=== PATIENT | female | born 1965 | race African-American/Black ===

== ENCOUNTER 2016-10-03 15:25 | Emergency (ER) | payer MEDICAID ==
[~2016-10-03] VITALS: Ht 167.6 cm; Wt 90.7 kg
[~2016-10-03 15:25] MED LIST: CYCL5TAB89 PO; TRAM50TA2 PO
[2016-10-03 16:24] LABS: Basophils # (auto) 0.1 uL; Basophils % (auto) 0.7 % (0.0-2.0); Eosinophils # (auto) 0.1 uL; Eosinophils % (auto) 0.7 % (0.0-7.0); Hematocrit 45.4 % (36.0-46.0); Hemoglobin 14.9 g/dL (12.2-16.2); Lymphocytes # (auto) 3.2 uL; Mean Corpuscular Hemoglobin 29.6 pg (28.0-32.0); Mean Corpuscular Hgb Conc. 32.9 g/dL (32.0-36.0); Mean Corpuscular Volume 89.9 fL (80.0-100.0); Mean Platelet Volume 9.3 fL (7.4-10.4); Monocytes # (auto) 0.2 uL; Neutrophils # (auto) 6.4 uL; Neutrophils % (auto) 64.6 % (37.0-80.0); Platelet Count (auto) 348 10^3/uL (140-450); White Blood Cell 9.9 10^3/uL (4.4-10.8)
[2016-10-03 16:54] LABS: Albumin 4.6 g/dL (3.4-5.0); BUN/Creatinine Ratio 13.9; Calcium 9.8 mg/dL (8.5-10.1); Potassium 3.6 mmol/L (3.5-5.1)
[2016-10-03 16:56] LABS: Bilirubin, Total 0.5 mg/dL (0.2-1.0); Total Protein 8.5 g/dL (6.4-8.2)
[2016-10-03] MEDS ORDERED: LABETALOL HCL 5 MG/ML 4ML SYRINGE IV ONE (18:00)
[2016-10-03] MEDS ORDERED: SODIUM CHLORIDE 0.9% 1,000 ML IV ONE (18:07)
[2016-10-03] MEDS ORDERED: MORPHINE SULFATE 4 MG/ML SYRG IV ONE (18:15)
[2016-10-03] MEDS ORDERED: DONNATAL 5ml ORAL Elix (BELLADONNA ALK-PHENOBARB) PO ONE (18:15)
[2016-10-03] MEDS ORDERED: LIDOCAINE VISCOUS 2% 15ML UD PO ONE (18:15)
[2016-10-03] MEDS ORDERED: ALUM & MAG HYDROX-SIMETH LIQ(MAALOX) 30 ML PO ONE (18:15)
[2016-10-03] MEDS ORDERED: PROMETHAZINE HCL 25 MG/ML 1ML IV ONE (18:15)
[2016-10-03] MEDS ORDERED: ONDANSETRON HCL 4 MG/2 ML VIAL IV ONE (20:15)
[2016-10-03 20:30] VITALS: BP 155/88
[2016-10-03] MEDS ORDERED: cloNIDine HCL 0.1 MG TAB PO ONE (20:30)
[2016-10-03] MEDS ORDERED: ONDANSETRON ODT 4 MG TAB PO ONE (21:00)
[2016-10-03] MEDS ORDERED: HYDROcodone-ACET 5/325MG TAB PO ONE (21:00)
[2016-10-03 21:46] LABS: Urine Bilirubin Negative (Negative); Urine Blood Negative /uL (Negative); Urine Color Yellow (Yellow); Urine Mucus FEW (None Seen); Urine Nitrite Negative (Negative); Urine RBC 7 /hpf (0 - 4); Urine Squamous Epithelial Cell FEW /hpf (<5); Urine Urobilinogen Normal (Negative); Urine pH 6.5 (5.0-8.0)
[2016-10-03 21:47] LABS: Urine Glucose 2+ mg/dL (Normal); Urine Ketone 2+ (Negative)
== END 2016-10-03 22:55 | disposition home or self-care (01) ==
LOC: EDUNIT# 15:25 → ER 15:29
DX: R10.13 Epigastric pain (principal); R11.2 Nausea with vomiting, unspecified; R06.02 Shortness of breath; E07.9 Disorder of thyroid, unspecified; Z90.710 Acquired absence of both cervix and uterus; Z98.51 Tubal ligation status; Z79.899 Other long term (current) drug therapy
CPT/HCPCS: 36415; 71010; 74176; 80053; 81001; 85025; 85049; 86677; 96361; 96374; 96375; 99285; J2270; J2405; J2550; J3490; Q0162

== ENCOUNTER 2017-10-25 16:35 | Inpatient (IN) | payer MEDICAID ==
[~2017-10-25] VITALS: Ht 154.9 cm; Wt 73.0 kg
[~2017-10-25 16:35] MED LIST changes: +AML5T PO; +PANT40T PO
[2017-10-25] MEDS ORDERED: SODIUM CHLORIDE 0.9% 1,000 ML IVB ONE (16:50)
[2017-10-25 17:17] LABS: Basophils # (auto) 0.1 uL; Eosinophils # (auto) 0.2 uL; Eosinophils % (auto) 1.3 % (0.0-7.0); Hematocrit 44.1 % (36.0-46.0); Hemoglobin 14.3 g/dL (12.2-16.2); Lymphocytes # (auto) 3.5 uL; Lymphocytes % (auto) 28.3 % (10.0-50.0); Mean Corpuscular Hemoglobin 30.5 pg (28.0-32.0); Mean Corpuscular Hgb Conc. 32.5 g/dL (32.0-36.0); Monocytes # (auto) 0.3 uL; Monocytes % (auto) 2.8 % (0.0-12.0); Neutrophils # (auto) 8.3 uL; Neutrophils % (auto) 66.6 % (37.0-80.0); Platelet Count (auto) 317 10^3/uL (140-450); Red Blood Cells 4.69 10^6/uL (4.0-5.20); Red Cell Distribution Width 13.8 % (11.8-14.3); White Blood Cell 12.5 10^3/uL (4.4-10.8)
[2017-10-25 17:32] LABS: Alanine Aminotransferase 41 U/L (13-56); Albumin 4.6 g/dL (3.4-5.0); Amylase 78 U/L (25-115); Anion Gap 13 (5-15); Aspartate Aminotransferase 33 U/L (15-37); Blood Urea Nitrogen 15 mg/dL (7-18); Calcium 9.8 mg/dL (8.5-10.1); Carbon Dioxide 23 mmol/L (21-32); Chloride 103 mmol/L (98-107); GFR African American 87 mL/min; GFR Non-African American 72 mL/min; Glucose 124 mg/dL (74-106); Lipase 115 U/L (73-393); Magnesium 2.3 mg/dL (1.6-2.6); Potassium 4.2 mmol/L (3.5-5.1); Sodium 139 mmol/L (136-145)
[2017-10-25 17:37] LABS: Alkaline Phosphatase 98 U/L (45-117); Bilirubin, Total 0.4 mg/dL (0.2-1.0); Lactic Acid w/Reflex 2.4 mmol/L (0.4-2.0); Total Protein 8.7 g/dL (6.4-8.2)
[2017-10-25] MEDS ORDERED: PROCHLORPERAZINE EDISYLATE 5 MG/ML 2ML VIAL IV ONE (18:00)
[2017-10-25] MEDS ORDERED: LEVOFLOXACIN 500MG 100 ML IV ONE (18:45)
[2017-10-25 18:55] LABS: Urine Bacteria NONE SEEN /hpf (None Seen); Urine Blood Negative /uL (Negative); Urine Specific Gravity 1.012 (1.001-1.035); Urine WBC 1 /hpf (0 - 5)
[2017-10-25] MEDS ORDERED: SODIUM CHLORIDE 0.9% 1,000 ML IV ONE (19:15)
[2017-10-25] MEDS ORDERED: TEMAZEPAM 15 MG CAP PO PRN (21:45)
[2017-10-25] MEDS ORDERED: ACETAMINOPHEN 325 MG TAB PO PRN (21:45)
[2017-10-25] MEDS ORDERED: HYDROcodone-ACET 5/325MG TAB PO PRN (21:45)
[2017-10-25] MEDS: SODIUM CHLORIDE 0.9% 1,000 ML IV SCH (21:48)
[2017-10-25] MEDS: PANTOPRAZOLE 40 MG/10 ML VIAL IV SCH (22:06)
[2017-10-25] MEDS: ONDANSETRON HCL 4 MG/2 ML VIAL IV PRN (22:15)
[2017-10-25 22:30] VITALS: BP 167/95
[2017-10-25] MEDS: MORPHINE SULFATE 4 MG/ML SYR/VIAL IV PRN (23:32)
[2017-10-26] MEDS: ONDANSETRON HCL 4 MG/2 ML VIAL IV PRN (03:10)
[2017-10-26] MEDS: MORPHINE SULFATE 4 MG/ML SYR/VIAL IV PRN (04:40)
[2017-10-26 05:30] VITALS: BP 176/104
[2017-10-26 06:11] VITALS: BP 176/104
[2017-10-26] MEDS ORDERED: amLODIPine BESYLATE 5 MG TAB PO ONE (06:30)
[2017-10-26] MEDS: PROMETHAZINE HCL 25 MG/ML 1ML IV PRN ×3 (06:36→16:13)
[2017-10-26 06:43] LABS: Basophils # (auto) 0 uL; Basophils % (auto) 0.3 % (0.0-2.0); Eosinophils # (auto) 0 uL; Hematocrit 43.1 % (36.0-46.0); Hemoglobin 14.4 g/dL (12.2-16.2); Lymphocytes # (auto) 1.8 uL; Mean Corpuscular Hemoglobin 30.8 pg (28.0-32.0); Mean Corpuscular Hgb Conc. 33.4 g/dL (32.0-36.0); Mean Corpuscular Volume 92.2 fL (80.0-100.0); Monocytes # (auto) 0.3 uL; Monocytes % (auto) 2.9 % (0.0-12.0); Neutrophils # (auto) 9.9 uL; Neutrophils % (auto) 81.8 % (37.0-80.0); Nucleated Red Blood Cells % 0.1 %; Platelet Count (auto) 298 10^3/uL (140-450); Red Blood Cells 4.67 10^6/uL (4.0-5.20); Red Cell Distribution Width 13.2 % (11.8-14.3); White Blood Cell 12.1 10^3/uL (4.4-10.8)
[2017-10-26 06:58] LABS: Albumin 4.7 g/dL (3.4-5.0); Calcium 10.2 mg/dL (8.5-10.1); Potassium 3.5 mmol/L (3.5-5.1)
[2017-10-26 07:00] LABS: Bilirubin, Total 0.4 mg/dL (0.2-1.0); Total Protein 8.7 g/dL (6.4-8.2)
[2017-10-26 08:00] VITALS: BP_SYST 180; BP_SYST 183; BP_DIAS 100; BP_DIAS 111
[2017-10-26] MEDS: SODIUM CHLORIDE 0.9% 1,000 ML IV SCH ×3 (08:42→21:44)
[2017-10-26] MEDS: cefTRIAXone 1GM/10ml IVPUSH 10 ML IV SCH (09:57)
[2017-10-26] MEDS: ENOXAPARIN SOD 40 MG/0.4 ML SYRINGE SC SCH (09:58)
[2017-10-26] MEDS ORDERED: amLODIPine BESYLATE 5 MG TAB PO SCH (10:00)
[2017-10-26] MEDS: PANTOPRAZOLE 40 MG/10 ML VIAL IV SCH ×2 (10:02→21:44)
[2017-10-26 13:00] VITALS: BP 161/99
[2017-10-26] MEDS ORDERED: HYOSCYAMINE SULF 0.125 MG TAB PO PRN (15:30)
[2017-10-26 16:31] VITALS: BP 170/74
[2017-10-26 22:00] VITALS: BP 135/84
[2017-10-27] VITALS (7 sets, daily range): BP systolic 97–123; BP diastolic 52–73
[2017-10-27 06:27] LABS: Basophils # (auto) 0.1 uL; Basophils % (auto) 0.5 % (0.0-2.0); Eosinophils # (auto) 0.1 uL; Eosinophils % (auto) 0.6 % (0.0-7.0); Hematocrit 47.6 % (36.0-46.0); Hemoglobin 15.6 g/dL (12.2-16.2); Lymphocytes # (auto) 5.5 uL; Lymphocytes % (auto) 39.1 % (10.0-50.0); Mean Corpuscular Hemoglobin 30.2 pg (28.0-32.0); Mean Corpuscular Hgb Conc. 32.6 g/dL (32.0-36.0); Mean Corpuscular Volume 92.5 fL (80.0-100.0); Monocytes % (auto) 7.2 % (0.0-12.0); Neutrophils # (auto) 7.4 uL; Neutrophils % (auto) 52.6 % (37.0-80.0); Nucleated Red Blood Cells % 0.1 %; Platelet Count (auto) 337 10^3/uL (140-450); Red Blood Cells 5.15 10^6/uL (4.0-5.20); Red Cell Distribution Width 13.3 % (11.8-14.3)
[2017-10-27 06:39] LABS: BUN/Creatinine Ratio 13.7; Calcium 9.6 mg/dL (8.5-10.1); Magnesium 2.4 mg/dL (1.6-2.6); Potassium 3.4 mmol/L (3.5-5.1)
[2017-10-27] MEDS: cefTRIAXone 1GM/10ml IVPUSH 10 ML IV SCH (09:11)
[2017-10-27] MEDS: PANTOPRAZOLE 40 MG/10 ML VIAL IV SCH ×2 (09:11→21:46)
[2017-10-27] MEDS: ENOXAPARIN SOD 40 MG/0.4 ML SYRINGE SC SCH (09:12)
[2017-10-27] MEDS: amLODIPine BESYLATE 5 MG TAB PO SCH (09:18)
[2017-10-27] MEDS ORDERED: amLODIPine BESYLATE 5 MG TAB PO SCH (10:00)
[2017-10-27] MEDS: SODIUM CHLORIDE 0.9% 1,000 ML IV SCH ×2 (14:34→23:45)
[2017-10-28 04:33] VITALS: BP 98/65
[2017-10-28 07:36] LABS: Calcium 9.1 mg/dL (8.5-10.1); Magnesium 2.5 mg/dL (1.6-2.6); Potassium 3.8 mmol/L (3.5-5.1)
[2017-10-28 07:38] LABS: BUN/Creatinine Ratio 28.3
[2017-10-28 08:30] VITALS: BP 110/58
[2017-10-28 09:00] VITALS: BP_SYST 102; BP_SYST 110; BP_DIAS 58; BP_DIAS 77
[2017-10-28] MEDS: cefTRIAXone 1GM/10ml IVPUSH 10 ML IV SCH (09:00)
[2017-10-28] MEDS: SODIUM CHLORIDE 0.9% 1,000 ML IV SCH (09:45)
[2017-10-28] MEDS: ENOXAPARIN SOD 40 MG/0.4 ML SYRINGE SC SCH (10:00)
[2017-10-28] MEDS: PANTOPRAZOLE 40 MG/10 ML VIAL IV SCH (10:00)
[2017-10-28] MEDS: amLODIPine BESYLATE 5 MG TAB PO SCH (10:00)
== END 2017-10-28 12:21 | disposition home or self-care (01) | DRG 720 ==
LOC: EDBD 16:35 → ER 16:35 → CENTRAL 16:36
PROVIDERS: ADMIT Nurse Practitioner; ATTEND Internal Medicine
DX: A41.9 Sepsis, unspecified organism (principal); N17.9 Acute kidney failure, unspecified; E83.52 Hypercalcemia; I10 Essential (primary) hypertension; E03.9 Hypothyroidism, unspecified; E86.0 Dehydration; F12.90 Cannabis use, unspecified, uncomplicated; G89.4 Chronic pain syndrome; K21.9 Gastro-esophageal reflux disease without esophagitis; K29.80 Duodenitis without bleeding; G47.00 Insomnia, unspecified; M47.9 Spondylosis, unspecified; R73.9 Hyperglycemia, unspecified; K57.90 Diverticulosis of intestine, part unspecified, without perforation or abscess without bleeding; K52.9 Noninfective gastroenteritis and colitis, unspecified; Z82.49 Family history of ischemic heart disease and other diseases of the circulatory system; Z83.3 Family history of diabetes mellitus; Z90.710 Acquired absence of both cervix and uterus; Z79.899 Other long term (current) drug therapy; Z71.89 Other specified counseling
CPT/HCPCS: 36415; 71046; 74176; 80048; 80053; 81001; 82150; 82306; 83605; 83690; 83735; 83970; 84100; 84484; 85025; 87040; 93005; 94761; 96361; 96365; 96375; C9113; J1956; J2405

== ENCOUNTER 2017-12-28 13:31 | Inpatient (IN) | payer MEDICAID ==
[~2017-12-28] VITALS: Ht 160 cm; Wt 77.1 kg
[2017-12-28] MEDS ORDERED: ONDANSETRON HCL 4 MG/2 ML VIAL ONE (13:45)
[2017-12-28] MEDS ORDERED: ASPirin 81 mg TAB PO ONE (13:45)
[2017-12-28] MEDS ORDERED: ONDANSETRON HCL 4 MG/2 ML VIAL IV ONE ×2 (13:45→15:45)
[2017-12-28 14:50] LABS: Basophils # (auto) 0.1 uL; Basophils % (auto) 0.7 % (0.0-2.0); Eosinophils # (auto) 0.2 uL; Eosinophils % (auto) 2.1 % (0.0-7.0); Hematocrit 44.2 % (36.0-46.0); Lymphocytes % (auto) 25.3 % (10.0-50.0); Mean Corpuscular Hemoglobin 31.2 pg (28.0-32.0); Mean Corpuscular Hgb Conc. 33.9 g/dL (32.0-36.0); Mean Corpuscular Volume 92.1 fL (80.0-100.0); Monocytes # (auto) 0.5 uL; Monocytes % (auto) 3.9 % (0.0-12.0); Neutrophils # (auto) 8.2 uL; Nucleated Red Blood Cells % 0.2 %; Platelet Count (auto) 345 10^3/uL (140-450); Red Cell Distribution Width 13.1 % (11.8-14.3); White Blood Cell 12.1 10^3/uL (4.4-10.8)
[2017-12-28 15:03] LABS: INR 0.94 (0.9-1.15); Partial Thromboplastin Time 27.1 sec (22.64-33.71); Prothrombin Time 10.2 sec (9.37-12.3)
[2017-12-28 15:16] LABS: Chloride 107 mmol/L (98-107); Potassium 3.6 mmol/L (3.5-5.1); Sodium 139 mmol/L (136-145)
[2017-12-28 15:17] LABS: Alanine Aminotransferase 41 U/L (13-56); Alkaline Phosphatase 91 U/L (45-117); Anion Gap 11 (5-15); Aspartate Aminotransferase 28 U/L (15-37); Blood Urea Nitrogen 11 mg/dL (7-18); Calcium 9.5 mg/dL (8.5-10.1); Carbon Dioxide 21 mmol/L (21-32); GFR African American 83 mL/min; GFR Non-African American 69 mL/min; Glucose 112 mg/dL (74-106)
[2017-12-28 15:18] LABS: Albumin 4.5 g/dL (3.4-5.0); Bilirubin, Total 0.4 mg/dL (0.2-1.0); Total Protein 8.6 g/dL (6.4-8.2)
[2017-12-28] MEDS ORDERED: cefTRIAXone 1GM/10ml IVPUSH 10 ML IV ONE (15:45)
[2017-12-28] MEDS ORDERED: SODIUM CHLORIDE 0.9% 1,000 ML IV ONE ×2 (16:53)
[2017-12-28] MEDS ORDERED: MORPHINE SULFATE 8mg/ml INJ SDV IV PRN (18:00)
[2017-12-28] MEDS ORDERED: TEMAZEPAM 15 MG CAP PO PRN (18:00)
[2017-12-28] MEDS ORDERED: LORazepam 0.5 MG TAB PO PRN (18:00)
[2017-12-28] MEDS: FAMOTIDINE (10MG/ML) 2ML VL IV SCH (18:00)
[2017-12-28] MEDS ORDERED: NITROGLYCERIN 0.4 MG SL TAB SL PRN (18:00)
[2017-12-28] MEDS ORDERED: ACETAMINOPHEN 500 MG TAB PO PRN (18:00)
[2017-12-28] MEDS ORDERED: LACTULOSE 20Gm/30ML SOLN PO PRN (18:00)
[2017-12-28] MEDS ORDERED: HYDROcodone-ACET 5/325MG TAB PO PRN (18:00)
[2017-12-28] MEDS: PROMETHAZINE HCL 25 MG/ML 1ML IV PRN ×2 (18:24→22:27)
[2017-12-28] MEDS: ENOXAPARIN SOD 40 MG/0.4 ML SYRINGE SC SCH (18:24)
[2017-12-28 18:42] LABS: CRP High Sensitivity 0.43 mg/dL (< 0.3)
[2017-12-28] MEDS: METOPROLOL TARTRATE 25 MG TAB PO SCH ×2 (18:55→22:27)
[2017-12-28] MEDS: SODIUM CHLORIDE 0.9% 1,000 ML IV SCH (18:57)
[2017-12-28 20:45] VITALS: BP 163/92
[2017-12-28 20:50] VITALS: BP 163/92
[2017-12-28] MEDS: ATORVASTATIN 20 MG TAB PO SCH (22:26)
[2017-12-28] MEDS: MORPHINE SULFATE 8mg/ml INJ SDV IV PRN (22:27)
[2017-12-29] VITALS (7 sets, daily range): BP systolic 112–198; BP diastolic 65–105
[2017-12-29] MEDS: SODIUM CHLORIDE 0.9% 1,000 ML IV SCH ×2 (04:30→14:03)
[2017-12-29] MEDS: PROMETHAZINE HCL 25 MG/ML 1ML IV PRN ×3 (05:44→21:47)
[2017-12-29] MEDS: MORPHINE SULFATE 8mg/ml INJ SDV IV PRN (05:44)
[2017-12-29] MEDS: FAMOTIDINE (10MG/ML) 2ML VL IV SCH (05:44)
[2017-12-29] MEDS: METOPROLOL TARTRATE 25 MG TAB PO SCH ×2 (06:24→21:49)
[2017-12-29] MEDS: NITROGLYCERIN 0.2MG/HR TOPICAL PATCH TD SCH (10:31)
[2017-12-29] MEDS: ENOXAPARIN SOD 40 MG/0.4 ML SYRINGE SC SCH (10:31)
[2017-12-29] MEDS: ASPirin 81 mg TAB PO SCH (10:31)
[2017-12-29 11:18] LABS: Urine Bacteria NONE SEEN /hpf (None Seen); Urine Blood 1+ /uL (Negative); Urine Specific Gravity 1.018 (1.001-1.035); Urine WBC 2 /hpf (0 - 5)
[2017-12-29 12:41] LABS: Alcohol, Urine < 3.0 mg/dL (0-5); Amphetamine Screen, Urine NEGATIVE (NEGATIVE); Barbiturate Scree,Urine NEGATIVE (NEGATIVE); Benzodiazephine Screen, Urine NEGATIVE (NEGATIVE); Cannabinoid Screen, Urine POSITIVE (NEGATIVE); Cocaine Screen, Urine NEGATIVE (NEGATIVE); Opiate Scree,Urine POSITIVE (NEGATIVE); Phencyclidine Screen, Urine NEGATIVE (NEGATIVE)
[2017-12-29] MEDS ORDERED: ALUM & MAG HYDROX-SIMETH LIQ(MAALOX) 30 ML PO PRN (14:15)
[2017-12-29 15:23] LABS: Basophils # (auto) 0.2 uL; Eosinophils # (auto) 0 uL; Eosinophils % (auto) 0.1 % (0.0-7.0); Hematocrit 43.3 % (36.0-46.0); Hemoglobin 14.9 g/dL (12.2-16.2); Lymphocytes % (auto) 18.1 % (10.0-50.0); Mean Corpuscular Hemoglobin 31.2 pg (28.0-32.0); Mean Corpuscular Hgb Conc. 34.4 g/dL (32.0-36.0); Mean Corpuscular Volume 90.9 fL (80.0-100.0); Monocytes % (auto) 6.2 % (0.0-12.0); Neutrophils # (auto) 12.4 uL; Neutrophils % (auto) 74.6 % (37.0-80.0); Nucleated Red Blood Cells % 0.1 %; Platelet Count (auto) 378 10^3/uL (140-450); Red Blood Cells 4.77 10^6/uL (4.0-5.20); Red Cell Distribution Width 13.4 % (11.8-14.3); White Blood Cell 16.6 10^3/uL (4.4-10.8)
[2017-12-29 15:46] LABS: Cholesterol 283 mg/dL (< 200); HDL Cholesterol 70 mg/dL (40-59); LDL Cholesterol 190 mg/dL (< 100); Triglycerides 105 mg/dL (< 150)
[2017-12-29] MEDS ORDERED: cloNIDine HCL 0.1 MG TAB PO PRN (16:45)
[2017-12-29] MEDS: PANTOPRAZOLE 40 MG/10 ML VIAL IV SCH (21:47)
[2017-12-29] MEDS: ATORVASTATIN 20 MG TAB PO SCH (21:47)
[2017-12-30 05:00] VITALS: BP 100/62
[2017-12-30 06:14] LABS: BUN/Creatinine Ratio 14.5; Potassium 3.8 mmol/L (3.5-5.1)
[2017-12-30 08:31] LABS: Basophils # (auto) 0.1 uL; Basophils % (auto) 0.7 % (0.0-2.0); Eosinophils # (auto) 0.1 uL; Hematocrit 45.5 % (36.0-46.0); Hemoglobin 15.4 g/dL (12.2-16.2); Lymphocytes # (auto) 4.6 uL; Mean Corpuscular Hemoglobin 30.8 pg (28.0-32.0); Mean Corpuscular Hgb Conc. 33.8 g/dL (32.0-36.0); Mean Corpuscular Volume 91.4 fL (80.0-100.0); Monocytes # (auto) 0.9 uL; Monocytes % (auto) 7.2 % (0.0-12.0); Neutrophils # (auto) 6.7 uL; Neutrophils % (auto) 54.1 % (37.0-80.0); Nucleated Red Blood Cells % 0.1 %; Platelet Count (auto) 340 10^3/uL (140-450); Red Blood Cells 4.98 10^6/uL (4.0-5.20); Red Cell Distribution Width 13.1 % (11.8-14.3); White Blood Cell 12.4 10^3/uL (4.4-10.8)
[2017-12-30 09:00] VITALS: BP 109/65
[2017-12-30] MEDS: PANTOPRAZOLE 40 MG/10 ML VIAL IV SCH (09:18)
[2017-12-30] MEDS: ASPirin 81 mg TAB PO SCH (09:19)
[2017-12-30] MEDS: METOPROLOL TARTRATE 25 MG TAB PO SCH (09:19)
[2017-12-30] MEDS: NITROGLYCERIN 0.2MG/HR TOPICAL PATCH TD SCH (09:19)
[2017-12-30] MEDS: ENOXAPARIN SOD 40 MG/0.4 ML SYRINGE SC SCH (09:21)
[2017-12-30 13:00] VITALS: BP 104/60
[2017-12-30 14:30] VITALS: BP 109/65
== END 2017-12-30 16:25 | disposition home or self-care (01) | DRG 241 ==
LOC: EDBD 13:31 → ER 13:31 → TELE 13:32 → TELE-WESTW 20:43
PROVIDERS: ADMIT Internal Medicine; ATTEND Internal Medicine
DX: K29.70 Gastritis, unspecified, without bleeding (principal); E66.9 Obesity, unspecified; K59.00 Constipation, unspecified; F41.9 Anxiety disorder, unspecified; K44.9 Diaphragmatic hernia without obstruction or gangrene; K57.30 Diverticulosis of large intestine without perforation or abscess without bleeding; I70.8 Atherosclerosis of other arteries; R07.89 Other chest pain; I25.10 Atherosclerotic heart disease of native coronary artery without angina pectoris; F19.10 Other psychoactive substance abuse, uncomplicated; Z90.710 Acquired absence of both cervix and uterus; Z79.899 Other long term (current) drug therapy; Z80.8 Family history of malignant neoplasm of other organs or systems; Z82.49 Family history of ischemic heart disease and other diseases of the circulatory system; Z83.3 Family history of diabetes mellitus; Z68.30 Body mass index [BMI] 30.0-30.9, adult
CPT/HCPCS: 36415; 71045; 74176; 76705; 80048; 80053; 80061; 80307; 81001; 82150; 82550; 83690; 83880; 84443; 84484; 85025; 85379; 85610; 85652; 85730; 86141; 87081; 93005; 93306; 96374; 96376; 99291; C9113; J2270; J2405; J3490

== ENCOUNTER 2018-01-30 10:19 | Emergency (ER) | payer MEDICAID ==
[~2018-01-30] VITALS: Ht 152.4 cm; Wt 77.1 kg
[2018-01-30 11:11] LABS: Basophils # (auto) 0.1 uL; Basophils % (auto) 0.9 % (0.0-2.0); Eosinophils # (auto) 0.2 uL; Hematocrit 44.3 % (36.0-46.0); Hemoglobin 14.9 g/dL (12.2-16.2); Lymphocytes # (auto) 3.1 uL; Lymphocytes % (auto) 37.5 % (10.0-50.0); Mean Corpuscular Hgb Conc. 33.7 g/dL (32.0-36.0); Mean Corpuscular Volume 91.8 fL (80.0-100.0); Monocytes # (auto) 0.4 uL; Monocytes % (auto) 4.3 % (0.0-12.0); Neutrophils # (auto) 4.5 uL; Neutrophils % (auto) 54.3 % (37.0-80.0); Nucleated Red Blood Cells % 0.1 %; Platelet Count (auto) 318 10^3/uL (140-450); Red Blood Cells 4.82 10^6/uL (4.0-5.20); Red Cell Distribution Width 13.1 % (11.8-14.3); White Blood Cell 8.3 10^3/uL (4.4-10.8)
[2018-01-30 11:37] LABS: Albumin 4.5 g/dL (3.4-5.0); BUN/Creatinine Ratio 21.1; Bilirubin, Total 0.4 mg/dL (0.2-1.0); Calcium 9.6 mg/dL (8.5-10.1); Total Protein 8.3 g/dL (6.4-8.2)
[2018-01-30] MEDS ORDERED: KETOROLAC TROMETH 60MG/2ML VIAL IM ONE (11:45)
[2018-01-30 13:54] VITALS: BP 165/74
[2018-02-07] MEDS ORDERED: HYOS0.1220 PO (11:34)
== END 2018-01-30 13:58 | disposition home or self-care (01) ==
LOC: ER 10:26
DX: R10.13 Epigastric pain (principal); R11.2 Nausea with vomiting, unspecified; Z90.710 Acquired absence of both cervix and uterus
CPT/HCPCS: 36415; 74176; 80053; 85025; 86677; 96372; 99285; J1885

== ENCOUNTER 2018-02-05 12:02 | Inpatient (IN) | payer MEDICAID ==
[~2018-02-05] VITALS: Ht 162.6 cm; Wt 80.0 kg
[2018-02-05] MEDS ORDERED: PANTOPRAZOLE 40 MG/10 ML VIAL IV STA (12:10)
[2018-02-05] MEDS ORDERED: SODIUM CHLORIDE 0.9% 500 ML IVB ONE (12:10)
[2018-02-05] MEDS ORDERED: MORPHINE SULFATE 4 MG/ML SYR/VIAL IV ONE (12:15)
[2018-02-05] MEDS ORDERED: PROCHLORPERAZINE EDISYLATE 5 MG/ML 2ML VIAL IV ONE (12:15)
[2018-02-05 13:30] LABS: Albumin 4.9 g/dL (3.4-5.0); BUN/Creatinine Ratio 16.5; Bilirubin, Total 0.5 mg/dL (0.2-1.0); Calcium 10.2 mg/dL (8.5-10.1); Potassium 3.8 mmol/L (3.5-5.1); Total Protein 9.2 g/dL (6.4-8.2)
[2018-02-05 13:32] LABS: Basophils # (auto) 0.1 uL; Basophils % (auto) 0.9 % (0.0-2.0); Eosinophils # (auto) 0.1 uL; Eosinophils % (auto) 1.2 % (0.0-7.0); Hematocrit 46.2 % (36.0-46.0); Hemoglobin 15.9 g/dL (12.2-16.2); Lymphocytes # (auto) 2.9 uL; Lymphocytes % (auto) 28.4 % (10.0-50.0); Mean Corpuscular Hemoglobin 31.2 pg (28.0-32.0); Mean Corpuscular Hgb Conc. 34.3 g/dL (32.0-36.0); Monocytes # (auto) 0.4 uL; Monocytes % (auto) 3.5 % (0.0-12.0); Neutrophils # (auto) 6.8 uL; Nucleated Red Blood Cells % 0.1 %; Platelet Count (auto) 273 10^3/uL (140-450); Red Blood Cells 5.08 10^6/uL (4.0-5.20); Red Cell Distribution Width 13.2 % (11.8-14.3); White Blood Cell 10.3 10^3/uL (4.4-10.8)
[2018-02-05] MEDS ORDERED: MORPHINE SULFATE INJECTION 1 ML ONE (14:40)
[2018-02-05] MEDS ORDERED: cefTRIAXone 1GM/10ml IVPUSH 10 ML IV ONE (15:00)
[2018-02-05] MEDS ORDERED: DEXTROSE (50%) 50ML SYRG IV PRN (15:00)
[2018-02-05] MEDS: SODIUM CHLORIDE 0.9% 1,000 ML IV SCH ×2 (15:03→20:56)
[2018-02-05] MEDS ORDERED: DOCUSATE SOD 100 MG CAP PO PRN (15:15)
[2018-02-05] MEDS ORDERED: NITROGLYCERIN 0.4 MG SL TAB SL PRN (15:15)
[2018-02-05] MEDS ORDERED: ACETAMINOPHEN 325 MG TAB PO PRN (15:15)
[2018-02-05] MEDS ORDERED: PANTOPRAZOLE 40 MG TAB PO ONE (15:15)
[2018-02-05] MEDS ORDERED: MORPHINE SULFATE 8mg/ml INJ SDV IV PRN ×2 (15:15)
[2018-02-05] MEDS ORDERED: FAMOTIDINE 20 MG TAB PO ONE (15:15)
[2018-02-05] MEDS ORDERED: ONDANSETRON HCL 4 MG/2 ML VIAL IV PRN (15:15)
[2018-02-05] MEDS ORDERED: HYDROcodone-ACET 5/325MG TAB PO PRN (15:15)
[2018-02-05] MEDS ORDERED: HYOSCYAMINE SULF 0.125 MG TAB PO PRN (15:30)
[2018-02-05] MEDS: MULTIPLE VITAMIN TAB PO SCH (15:57)
[2018-02-05 16:52] VITALS: BP 195/105
[2018-02-05 16:56] VITALS: BP 195/105
[2018-02-05] MEDS: SUCRALFATE 1 GM TAB PO SCH ×2 (17:38→20:55)
[2018-02-05] MEDS: InsuLIN REG 1unit/0.01ml Soln (100units/ml) SC SCH ×2 (17:39→22:00)
[2018-02-05] MEDS: ACCU-CHEK COMFORT CURVE STRIP VI SCH ×2 (17:39→20:56)
[2018-02-05] MEDS: cloNIDine HCL 0.1 MG TAB PO PRN ×2 (17:39→20:55)
[2018-02-05] MEDS: PANTOPRAZOLE 40 MG TAB PO SCH (20:55)
[2018-02-05] MEDS: TEMAZEPAM 15 MG CAP PO PRN (20:55)
[2018-02-05 22:00] VITALS: BP 189/98
[2018-02-05] MEDS ORDERED: FAMOTIDINE 20 MG TAB PO SCH (22:00)
[2018-02-05 22:33] VITALS: BP 165/80
[2018-02-06 00:32] VITALS: BP 146/72
[2018-02-06 05:49] VITALS: BP 92/55
[2018-02-06] MEDS: SUCRALFATE 1 GM TAB PO SCH ×4 (06:18→21:49)
[2018-02-06] MEDS: ACCU-CHEK COMFORT CURVE STRIP VI SCH ×4 (06:18→21:49)
[2018-02-06] MEDS: InsuLIN REG 1unit/0.01ml Soln (100units/ml) SC SCH ×4 (06:18→21:58)
[2018-02-06] MEDS: SODIUM CHLORIDE 0.9% 1,000 ML IV SCH ×3 (06:19→19:42)
[2018-02-06 06:34] LABS: Basophils # (auto) 0 uL; Basophils % (auto) 0.4 % (0.0-2.0); Eosinophils # (auto) 0 uL; Eosinophils % (auto) 0.1 % (0.0-7.0); Hematocrit 41.8 % (36.0-46.0); Hemoglobin 14.1 g/dL (12.2-16.2); Lymphocytes # (auto) 2.2 uL; Lymphocytes % (auto) 20.6 % (10.0-50.0); Mean Corpuscular Hgb Conc. 33.7 g/dL (32.0-36.0); Monocytes # (auto) 0.8 uL; Monocytes % (auto) 7.3 % (0.0-12.0); Neutrophils # (auto) 7.7 uL; Neutrophils % (auto) 71.6 % (37.0-80.0); Nucleated Red Blood Cells % 0.1 %; Platelet Count (auto) 280 10^3/uL (140-450); Red Blood Cells 4.54 10^6/uL (4.0-5.20); White Blood Cell 10.7 10^3/uL (4.4-10.8)
[2018-02-06 07:00] LABS: Potassium 3.8 mmol/L (3.5-5.1)
[2018-02-06 07:17] LABS: Albumin 4.1 g/dL (3.4-5.0); BUN/Creatinine Ratio 12.9; Bilirubin, Total 0.5 mg/dL (0.2-1.0); Calcium 9.7 mg/dL (8.5-10.1); Total Protein 8.1 g/dL (6.4-8.2)
[2018-02-06 09:00] VITALS: BP 79/49
[2018-02-06] MEDS: cefTRIAXone 1GM/10ml IVPUSH 10 ML IV SCH (09:17)
[2018-02-06] MEDS: MULTIPLE VITAMIN TAB PO SCH (09:17)
[2018-02-06] MEDS: PANTOPRAZOLE 40 MG TAB PO SCH ×2 (09:17→21:49)
[2018-02-06] MEDS ORDERED: PANTOPRAZOLE 40 MG TAB PO SCH (10:00)
[2018-02-06 13:00] VITALS: BP 100/61
[2018-02-06] MEDS ORDERED: MORPHINE SULFATE 8mg/ml INJ SDV IV PRN (13:00)
[2018-02-06 13:09] LABS: Urine Bacteria FEW /hpf (None Seen); Urine Blood TRACE /uL (Negative); Urine Hyaline Cast FEW /lpf (0 - 2); Urine Mucus FEW (None Seen); Urine Specific Gravity 1.015 (1.001-1.035); Urine WBC 2 /hpf (0 - 5)
[2018-02-06 14:17] LABS: Alcohol, Urine < 3.0 mg/dL (0-5); Amphetamine Screen, Urine NEGATIVE (NEGATIVE); Barbiturate Scree,Urine NEGATIVE (NEGATIVE); Benzodiazephine Screen, Urine POSITIVE (NEGATIVE); Cannabinoid Screen, Urine POSITIVE (NEGATIVE); Cocaine Screen, Urine NEGATIVE (NEGATIVE); Opiate Scree,Urine POSITIVE (NEGATIVE); Phencyclidine Screen, Urine NEGATIVE (NEGATIVE)
[2018-02-06 17:22] VITALS: BP 112/79
[2018-02-06 22:00] VITALS: BP 124/79
[2018-02-07] MEDS: TEMAZEPAM 15 MG CAP PO PRN (01:07)
[2018-02-07 05:00] VITALS: BP 117/73
[2018-02-07 06:03] LABS: BUN/Creatinine Ratio 15.4; Calcium 8.8 mg/dL (8.5-10.1)
[2018-02-07] MEDS: InsuLIN REG 1unit/0.01ml Soln (100units/ml) SC SCH (06:19)
[2018-02-07] MEDS: ACCU-CHEK COMFORT CURVE STRIP VI SCH (06:19)
[2018-02-07] MEDS: SUCRALFATE 1 GM TAB PO SCH ×2 (06:19→11:53)
[2018-02-07] MEDS: SODIUM CHLORIDE 0.9% 1,000 ML IV SCH (08:43)
[2018-02-07 09:00] VITALS: BP 102/62
[2018-02-07] MEDS: MULTIPLE VITAMIN TAB PO SCH (09:07)
[2018-02-07] MEDS: cefTRIAXone 1GM/10ml IVPUSH 10 ML IV SCH (09:07)
[2018-02-07] MEDS: PANTOPRAZOLE 40 MG TAB PO SCH (09:07)
[2018-02-07] MEDS ORDERED: HYOS0.1220 PO (11:34)
[2018-02-07 13:00] VITALS: BP 127/76
== END 2018-02-07 14:50 | disposition home or self-care (01) | DRG 241 ==
LOC: ER 12:02 → EDBD 12:02 → TELE 12:03 → TELE-WESTW 16:52
PROVIDERS: ADMIT Internal Medicine; ATTEND Internal Medicine
DX: K29.70 Gastritis, unspecified, without bleeding (principal); N17.0 Acute kidney failure with tubular necrosis; E83.52 Hypercalcemia; E78.5 Hyperlipidemia, unspecified; E86.0 Dehydration; K57.30 Diverticulosis of large intestine without perforation or abscess without bleeding; K44.9 Diaphragmatic hernia without obstruction or gangrene; N18.2 Chronic kidney disease, stage 2 (mild); G89.4 Chronic pain syndrome; I12.9 Hypertensive chronic kidney disease with stage 1 through stage 4 chronic kidney disease, or unspecified chronic kidney disease; E03.9 Hypothyroidism, unspecified; E66.9 Obesity, unspecified; K64.9 Unspecified hemorrhoids; Z83.3 Family history of diabetes mellitus; Z82.49 Family history of ischemic heart disease and other diseases of the circulatory system; Z90.710 Acquired absence of both cervix and uterus; F12.10 Cannabis abuse, uncomplicated; Z68.30 Body mass index [BMI] 30.0-30.9, adult
CPT/HCPCS: 36415; 74176; 80048; 80053; 80061; 80307; 81001; 82150; 82962; 83036; 83690; 84443; 85025; 87081; 87086; 94761; 96361; 96372; 96374; 96375; C9113; J1815; J2270; J2405

== ENCOUNTER 2018-03-16 14:21 | Inpatient (IN) | payer MEDICAID ==
[~2018-03-16] VITALS: Ht 162.6 cm; Wt 81.6 kg
[~2018-03-16 14:21] MED LIST changes: -AML5T PO; -CYCL5TAB89 PO; +HYOS0.1220 PO; -TRAM50TA2 PO
[2018-03-16 15:05] LABS: Basophils # (auto) 0.1 uL; Basophils % (auto) 0.5 % (0.0-2.0); Eosinophils # (auto) 0.1 uL; Eosinophils % (auto) 0.5 % (0.0-7.0); Hematocrit 46.4 % (36.0-46.0); Hemoglobin 15.7 g/dL (12.2-16.2); Lymphocytes # (auto) 3.1 uL; Lymphocytes % (auto) 25.6 % (10.0-50.0); Mean Corpuscular Hemoglobin 31.2 pg (28.0-32.0); Mean Corpuscular Hgb Conc. 33.8 g/dL (32.0-36.0); Mean Corpuscular Volume 92.3 fL (80.0-100.0); Monocytes # (auto) 0.3 uL; Monocytes % (auto) 2.6 % (0.0-12.0); Neutrophils # (auto) 8.6 uL; Neutrophils % (auto) 70.8 % (37.0-80.0); Nucleated Red Blood Cells % 0.2 %; Platelet Count (auto) 276 10^3/uL (140-450); Red Blood Cells 5.03 10^6/uL (4.0-5.20); Red Cell Distribution Width 13.3 % (11.8-14.3); White Blood Cell 12.1 10^3/uL (4.4-10.8)
[2018-03-16] MEDS ORDERED: SODIUM CHLORIDE 0.9% 1,000 ML IVB ONE (15:13)
[2018-03-16] MEDS ORDERED: HYDROmorphone HCL 2 MG/ML VL IV ONE (15:15)
[2018-03-16] MEDS ORDERED: MORPHINE SULF INJ 2 MG/ML SYRINGE 1ML IV ONE (15:15)
[2018-03-16] MEDS ORDERED: ONDANSETRON HCL 4 MG/2 ML VIAL ONE (15:21)
[2018-03-16 15:23] LABS: Alanine Aminotransferase 55 U/L (13-56); Albumin 4.7 g/dL (3.4-5.0); Alkaline Phosphatase 89 U/L (45-117); Amylase 59 U/L (25-115); Anion Gap 14 (5-15); Aspartate Aminotransferase 35 U/L (15-37); BUN/Creatinine Ratio 13.4; Bilirubin, Total 0.4 mg/dL (0.2-1.0); Blood Urea Nitrogen 13 mg/dL (7-18); Calcium 10.1 mg/dL (8.5-10.1); Carbon Dioxide 20 mmol/L (21-32); Chloride 106 mmol/L (98-107); GFR African American 78 mL/min; GFR Non-African American 65 mL/min; Glucose 148 mg/dL (74-106); Lipase 66 U/L (73-393); Magnesium 2.2 mg/dL (1.6-2.6); Potassium 4.2 mmol/L (3.5-5.1); Sodium 140 mmol/L (136-145); Total Protein 8.7 g/dL (6.4-8.2)
[2018-03-16] MEDS ORDERED: ONDANSETRON HCL 4 MG/2 ML VIAL IV ONE (15:30)
[2018-03-16] MEDS ORDERED: SODIUM CHLORIDE 0.9% 500 ML IV ONE (15:45)
[2018-03-16] MEDS ORDERED: PROMETHAZINE HCL 25 MG/ML 1ML ONE (17:05)
[2018-03-16] MEDS ORDERED: PROMETHAZINE HCL 25 MG/ML 1ML IV ONE (17:15)
[2018-03-16 18:05] LABS: Urine Bacteria NONE SEEN /hpf (None Seen); Urine Blood TRACE /uL (Negative); Urine Specific Gravity 1.014 (1.001-1.035); Urine WBC 1 /hpf (0 - 5)
[2018-03-16] MEDS ORDERED: NITROGLYCERIN 0.4 MG SL TAB SL PRN (19:45)
[2018-03-16] MEDS ORDERED: DEXTROSE (50%) 50ML SYRG IV PRN (19:45)
[2018-03-16] MEDS ORDERED: HYOSCYAMINE SULF 0.125 MG TAB PO PRN (19:45)
[2018-03-16] MEDS ORDERED: LORazepam 0.5 MG TAB PO PRN (19:45)
[2018-03-16] MEDS ORDERED: ACETAMINOPHEN 500 MG TAB PO PRN (19:45)
[2018-03-16] MEDS ORDERED: traMADol HCL 50 MG TAB PO PRN (19:45)
[2018-03-16] MEDS ORDERED: cefTRIAXone 1GM/10ml IVPUSH 10 ML IV ONE (19:45)
[2018-03-16] MEDS ORDERED: MORPHINE SULF INJ 2 MG/ML SYRINGE 1ML IV PRN (19:45)
[2018-03-16 22:00] VITALS: BP 166/92
[2018-03-16 22:30] VITALS: BP 166/92
[2018-03-16] MEDS: PANTOPRAZOLE 40 MG TAB PO SCH (23:00)
[2018-03-16] MEDS: SODIUM CHLORIDE 0.9% 1,000 ML IV SCH (23:00)
[2018-03-16] MEDS: PROMETHAZINE HCL 25 MG/ML 1ML IV PRN (23:01)
[2018-03-16] MEDS: ACCU-CHEK COMFORT CURVE STRIP VI SCH (23:53)
[2018-03-16] MEDS: metroNIDAZOLE 500MG/100ML 100 ML IV SCH (23:53)
[2018-03-16] MEDS: TEMAZEPAM 15 MG CAP PO PRN (23:54)
[2018-03-17] MEDS ORDERED: cloNIDine HCL 0.1 MG TAB PO ONE (03:45)
[2018-03-17] MEDS: PROMETHAZINE HCL 25 MG/ML 1ML IV PRN (03:51)
[2018-03-17 05:00] VITALS: BP 194/90
[2018-03-17] MEDS: SODIUM CHLORIDE 0.9% 1,000 ML IV SCH ×2 (05:30→14:41)
[2018-03-17] MEDS: ACCU-CHEK COMFORT CURVE STRIP VI SCH ×3 (05:30→18:00)
[2018-03-17] MEDS: metroNIDAZOLE 500MG/100ML 100 ML IV SCH ×2 (05:30→12:24)
[2018-03-17] MEDS ORDERED: hydrALAZINE HCL 20 MG/ML VL IV ONE (06:00)
[2018-03-17] MEDS: MORPHINE SULF INJ 2 MG/ML SYRINGE 1ML IV PRN ×2 (06:17→22:52)
[2018-03-17 06:19] LABS: Basophils # (auto) 0.1 uL; Basophils % (auto) 0.4 % (0.0-2.0); Eosinophils # (auto) 0 uL; Hematocrit 44.5 % (36.0-46.0); Lymphocytes # (auto) 2.2 uL; Lymphocytes % (auto) 16.3 % (10.0-50.0); Mean Corpuscular Hemoglobin 30.8 pg (28.0-32.0); Mean Corpuscular Hgb Conc. 33.8 g/dL (32.0-36.0); Mean Corpuscular Volume 91.1 fL (80.0-100.0); Monocytes # (auto) 0.6 uL; Monocytes % (auto) 4.6 % (0.0-12.0); Neutrophils # (auto) 10.7 uL; Neutrophils % (auto) 78.7 % (37.0-80.0); Nucleated Red Blood Cells % 0.1 %; Platelet Count (auto) 306 10^3/uL (140-450); Red Blood Cells 4.89 10^6/uL (4.0-5.20); Red Cell Distribution Width 13.5 % (11.8-14.3); White Blood Cell 13.6 10^3/uL (4.4-10.8)
[2018-03-17 06:47] LABS: Amylase 105 U/L (25-115); Lipase 228 U/L (73-393)
[2018-03-17 08:28] VITALS: BP 156/86
[2018-03-17] MEDS: PANTOPRAZOLE 40 MG TAB PO SCH ×2 (09:22→21:50)
[2018-03-17] MEDS: ENOXAPARIN SOD 40 MG/0.4 ML SYRINGE SC SCH (09:22)
[2018-03-17 13:22] VITALS: BP 104/62
[2018-03-17 16:36] VITALS: BP 111/68
[2018-03-17] MEDS ORDERED: cefTRIAXone 1GM/10ml IVPUSH 10 ML IV SCH (21:00)
[2018-03-18] MEDS: TEMAZEPAM 15 MG CAP PO PRN
[2018-03-18] MEDS: ACCU-CHEK COMFORT CURVE STRIP VI SCH ×3 (06:12→12:06)
[2018-03-18 06:32] LABS: Basophils # (auto) 0.1 uL; Basophils % (auto) 0.8 % (0.0-2.0); Eosinophils # (auto) 0.2 uL; Eosinophils % (auto) 1.7 % (0.0-7.0); Hematocrit 39.6 % (36.0-46.0); Hemoglobin 13.6 g/dL (12.2-16.2); Lymphocytes # (auto) 4.1 uL; Lymphocytes % (auto) 39.8 % (10.0-50.0); Mean Corpuscular Hemoglobin 31.4 pg (28.0-32.0); Mean Corpuscular Hgb Conc. 34.2 g/dL (32.0-36.0); Mean Corpuscular Volume 91.8 fL (80.0-100.0); Monocytes # (auto) 0.6 uL; Monocytes % (auto) 6.2 % (0.0-12.0); Neutrophils # (auto) 5.3 uL; Neutrophils % (auto) 51.5 % (37.0-80.0); Nucleated Red Blood Cells % 0.1 %; Platelet Count (auto) 259 10^3/uL (140-450); Red Blood Cells 4.32 10^6/uL (4.0-5.20); Red Cell Distribution Width 13.2 % (11.8-14.3); White Blood Cell 10.3 10^3/uL (4.4-10.8)
[2018-03-18 06:52] LABS: BUN/Creatinine Ratio 20.6; Calcium 8.8 mg/dL (8.5-10.1); Potassium 3.7 mmol/L (3.5-5.1)
[2018-03-18 09:00] VITALS: BP 99/64
[2018-03-18] MEDS: SODIUM CHLORIDE 0.9% 1,000 ML IV SCH (09:00)
[2018-03-18] MEDS: PANTOPRAZOLE 40 MG TAB PO SCH (09:37)
[2018-03-18] MEDS: ENOXAPARIN SOD 40 MG/0.4 ML SYRINGE SC SCH (09:37)
[2018-03-18] MEDS ORDERED: PANT40T PO (12:08)
[2018-03-18 13:00] VITALS: BP 108/56
[2018-03-18 15:38] VITALS: BP 108/56
[2018-03-18 17:00] VITALS: BP 113/60
== END 2018-03-18 17:30 | disposition home or self-care (01) | DRG 251 ==
LOC: EDBD 14:21 → ER 14:21 → TELE 14:22 → TELE-WESTW 22:00
PROVIDERS: ADMIT Internal Medicine; ATTEND Internal Medicine
DX: R10.11 Right upper quadrant pain (principal); I10 Essential (primary) hypertension; G89.4 Chronic pain syndrome; E66.9 Obesity, unspecified; D72.829 Elevated white blood cell count, unspecified; E03.9 Hypothyroidism, unspecified; R11.2 Nausea with vomiting, unspecified; E78.5 Hyperlipidemia, unspecified; F12.90 Cannabis use, unspecified, uncomplicated; I25.10 Atherosclerotic heart disease of native coronary artery without angina pectoris; Z80.0 Family history of malignant neoplasm of digestive organs; Z80.8 Family history of malignant neoplasm of other organs or systems; Z82.49 Family history of ischemic heart disease and other diseases of the circulatory system; Z83.3 Family history of diabetes mellitus; Z90.710 Acquired absence of both cervix and uterus; Z98.51 Tubal ligation status
CPT/HCPCS: 36415; 71045; 74176; 76705; 80048; 80053; 81001; 82150; 82378; 82962; 83036; 83690; 83735; 84484; 85025; 87086; 93005; 94761; 96361; 96374; 96375; J2405; J3490

== ENCOUNTER 2018-04-20 11:02 | Emergency (ER) | payer MEDICAID ==
[~2018-04-20] VITALS: Ht 152.4 cm; Wt 79.8 kg
[2018-04-20 12:12] VITALS: BP 151/101
[2018-04-20 12:15] LABS: Basophils # (auto) 0 uL; Basophils % (auto) 0.4 % (0.0-2.0); Eosinophils # (auto) 0.2 uL; Eosinophils % (auto) 2.2 % (0.0-7.0); Hemoglobin 13.9 g/dL (12.2-16.2); Lymphocytes # (auto) 2.1 uL; Lymphocytes % (auto) 22.7 % (10.0-50.0); Mean Corpuscular Hemoglobin 30.4 pg (28.0-32.0); Mean Corpuscular Hgb Conc. 33.1 g/dL (32.0-36.0); Mean Corpuscular Volume 91.8 fL (80.0-100.0); Monocytes # (auto) 0.4 uL; Monocytes % (auto) 4.2 % (0.0-12.0); Neutrophils # (auto) 6.6 uL; Neutrophils % (auto) 70.5 % (37.0-80.0); Platelet Count (auto) 279 10^3/uL (140-450); Red Blood Cells 4.58 10^6/uL (4.0-5.20); Red Cell Distribution Width 13.5 % (11.8-14.3); White Blood Cell 9.4 10^3/uL (4.4-10.8)
[2018-04-20] MEDS ORDERED: PANTOPRAZOLE 40 MG/10 ML VIAL IV ONE (12:45)
[2018-04-20] MEDS ORDERED: SODIUM CHLORIDE 0.9% 1,000 ML IV ONE (12:45)
[2018-04-20] MEDS ORDERED: PROMETHAZINE HCL 25 MG/ML 1ML IV ONE (12:45)
[2018-04-20 12:55] LABS: Alanine Aminotransferase 34 U/L (13-56); Albumin 4.1 g/dL (3.4-5.0); Alkaline Phosphatase 77 U/L (45-117); Amylase 64 U/L (25-115); Anion Gap 7 (5-15); Aspartate Aminotransferase 20 U/L (15-37); BUN/Creatinine Ratio 23.2; Bilirubin, Total 0.3 mg/dL (0.2-1.0); Blood Urea Nitrogen 19 mg/dL (7-18); Calcium 8.8 mg/dL (8.5-10.1); Carbon Dioxide 23 mmol/L (21-32); Chloride 111 mmol/L (98-107); GFR African American 95 mL/min; GFR Non-African American 78 mL/min; Glucose 94 mg/dL (74-106); Lipase 101 U/L (73-393); Potassium 3.8 mmol/L (3.5-5.1); Sodium 141 mmol/L (136-145)
[2018-04-20 13:38] LABS: Urine Bacteria NONE SEEN /hpf (None Seen); Urine Blood TRACE /uL (Negative); Urine Mucus FEW (None Seen); Urine WBC <1 /hpf (0 - 5)
== END 2018-04-20 15:01 | disposition home or self-care (01) ==
LOC: EDBD 11:02 → ER 11:04
DX: K29.70 Gastritis, unspecified, without bleeding (principal); Z90.710 Acquired absence of both cervix and uterus
CPT/HCPCS: 36415; 80053; 81001; 82150; 83690; 84484; 85025; 94761; 96361; 96374; 96375; 99285; C9113; J2550; 93005

== ENCOUNTER 2018-07-10 11:41 | Observation (INO) | payer MEDICAID ==
[~2018-07-10] VITALS: Ht 152.4 cm; Wt 79.8 kg
[2018-07-10] MEDS ORDERED: SODIUM CHLORIDE 0.9% 1,000 ML IVB ONE (12:07)
[2018-07-10] MEDS ORDERED: PROMETHAZINE HCL 25 MG/ML 1ML IV ONE (12:15)
[2018-07-10] MEDS ORDERED: MORPHINE SULFATE 4 MG/ML SYR/VIAL IV ONE (12:15)
[2018-07-10 13:13] LABS: Urine Bacteria NONE SEEN /hpf (None Seen); Urine Blood Negative /uL (Negative); Urine Specific Gravity 1.009 (1.001-1.035); Urine WBC <1 /hpf (0 - 5)
[2018-07-10 13:22] LABS: Basophils # (auto) 0.1 uL; Basophils % (auto) 0.8 % (0.0-2.0); Eosinophils # (auto) 0.2 uL; Hemoglobin 14.2 g/dL (12.2-16.2); Lymphocytes # (auto) 2.2 uL; Lymphocytes % (auto) 22.4 % (10.0-50.0); Mean Corpuscular Hemoglobin 31.1 pg (28.0-32.0); Mean Corpuscular Hgb Conc. 33.8 g/dL (32.0-36.0); Mean Corpuscular Volume 91.9 fL (80.0-100.0); Monocytes # (auto) 0.3 uL; Monocytes % (auto) 3.5 % (0.0-12.0); Neutrophils # (auto) 7.1 uL; Neutrophils % (auto) 71.3 % (37.0-80.0); Nucleated Red Blood Cells % 0.1 %; Platelet Count (auto) 289 10^3/uL (140-450); Red Blood Cells 4.58 10^6/uL (4.0-5.20); Red Cell Distribution Width 13.5 % (11.8-14.3)
[2018-07-10 13:36] LABS: INR 0.94 (0.9-1.15); Partial Thromboplastin Time 28.5 sec (23.78-33.04); Prothrombin Time 10.1 sec (9.27-12.13)
[2018-07-10 13:45] LABS: Alanine Aminotransferase 36 U/L (13-56); Albumin 4.1 g/dL (3.4-5.0); Amylase 74 U/L (25-115); Anion Gap 7 (5-15); Aspartate Aminotransferase 24 U/L (15-37); Blood Urea Nitrogen 13 mg/dL (7-18); Calcium 9.2 mg/dL (8.5-10.1); Carbon Dioxide 24 mmol/L (21-32); Chloride 110 mmol/L (98-107); Glucose 102 mg/dL (74-106); Lipase 125 U/L (73-393); Magnesium 2.4 mg/dL (1.6-2.6); Potassium 3.6 mmol/L (3.5-5.1); Sodium 141 mmol/L (136-145)
[2018-07-10 13:50] LABS: Alkaline Phosphatase 89 U/L (45-117); BUN/Creatinine Ratio 17.6; Bilirubin, Total 0.3 mg/dL (0.2-1.0); GFR African American 107 mL/min; GFR Non-African American 88 mL/min; Total Protein 7.9 g/dL (6.4-8.2)
[2018-07-10 17:58] VITALS: BP 104/63
== END 2018-07-10 18:05 | disposition home or self-care (01) | DRG 241 ==
LOC: ER 11:41 → EDBD 11:41 → OVERFLOW 11:42 → ER 18:04
PROVIDERS: ADMIT Family Medicine; ATTEND Family Medicine
DX: K29.50 Unspecified chronic gastritis without bleeding (principal); K21.9 Gastro-esophageal reflux disease without esophagitis; Z82.49 Family history of ischemic heart disease and other diseases of the circulatory system; Z83.3 Family history of diabetes mellitus; Z90.710 Acquired absence of both cervix and uterus
CPT/HCPCS: 36415; 71045; 74176; 80053; 81001; 82150; 83690; 83735; 84484; 85025; 85610; 85730; 93005; 96361; 96374; 96375; 99285; G0378; J2270; J2550; J7030

== ENCOUNTER 2018-07-27 02:26 | Emergency (ER) | payer MEDICAID ==
[~2018-07-27] VITALS: Ht 167.6 cm; Wt 81.6 kg
[2018-07-27] MEDS ORDERED: MORPHINE SULFATE 4 MG/ML SYR/VIAL IV ONE (03:30)
[2018-07-27] MEDS ORDERED: SODIUM CHLORIDE 0.9% 2,000 ML IV ONE (03:30)
[2018-07-27 03:53] LABS: Basophils # (auto) 0.1 uL; Basophils % (auto) 0.7 % (0.0-2.0); Eosinophils # (auto) 0 uL; Eosinophils % (auto) 0.1 % (0.0-7.0); Hemoglobin 14.3 g/dL (12.2-16.2); Lymphocytes % (auto) 18.9 % (10.0-50.0); Mean Corpuscular Hemoglobin 30.9 pg (28.0-32.0); Mean Corpuscular Hgb Conc. 33.2 g/dL (32.0-36.0); Mean Corpuscular Volume 93.2 fL (80.0-100.0); Monocytes # (auto) 0.3 uL; Monocytes % (auto) 2.4 % (0.0-12.0); Neutrophils # (auto) 8.3 uL; Neutrophils % (auto) 77.9 % (37.0-80.0); Nucleated Red Blood Cells % 0.1 %; Platelet Count (auto) 288 10^3/uL (140-450); Red Blood Cells 4.62 10^6/uL (4.0-5.20); Red Cell Distribution Width 13.3 % (11.8-14.3); White Blood Cell 10.6 10^3/uL (4.4-10.8)
[2018-07-27] MEDS ORDERED: PROMETHAZINE HCL 25 MG/ML 1ML IV ONE (04:00)
[2018-07-27 04:20] LABS: Albumin 4.4 g/dL (3.4-5.0); Calcium 9.4 mg/dL (8.5-10.1); Potassium 3.2 mmol/L (3.5-5.1)
[2018-07-27 04:23] LABS: BUN/Creatinine Ratio 17.9; Bilirubin, Total 0.5 mg/dL (0.2-1.0); Total Protein 8.6 g/dL (6.4-8.2)
[2018-07-27 05:20] LABS: Urine Amorphous Crystal FEW /hpf (None Seen); Urine Bacteria FEW /hpf (None Seen); Urine Blood TRACE /uL (Negative); Urine Specific Gravity 1.014 (1.001-1.035); Urine WBC <1 /hpf (0 - 5)
[2018-07-27 05:28] LABS: Alcohol, Urine < 3.0 mg/dL (0-5); Amphetamine Screen, Urine NEGATIVE (NEGATIVE); Barbiturate Scree,Urine NEGATIVE (NEGATIVE); Benzodiazephine Screen, Urine NEGATIVE (NEGATIVE); Cannabinoid Screen, Urine POSITIVE (NEGATIVE); Cocaine Screen, Urine NEGATIVE (NEGATIVE); Opiate Scree,Urine NEGATIVE (NEGATIVE); Phencyclidine Screen, Urine NEGATIVE (NEGATIVE)
[2018-07-27 05:31] VITALS: BP 162/94
== END 2018-07-27 07:32 | disposition home or self-care (01) ==
LOC: ER 02:26 → EDBD 02:26 → ER 07:32
DX: K29.00 Acute gastritis without bleeding (principal); F12.188 Cannabis abuse with other cannabis-induced disorder; F12.10 Cannabis abuse, uncomplicated; E78.5 Hyperlipidemia, unspecified; E07.89 Other specified disorders of thyroid; Z90.710 Acquired absence of both cervix and uterus
CPT/HCPCS: 36415; 74176; 80053; 80307; 81001; 83690; 85025; 96361; 96374; 96375; 99285; J2270; J2550; J7030

== ENCOUNTER 2019-02-08 18:41 | Emergency (ER) | payer MEDICAID ==
[~2019-02-08] VITALS: Ht 152.4 cm; Wt 70.3 kg
[~2019-02-08 18:41] MED LIST changes: +AML5T PO; +PANT40TA2 PO
[2019-02-08 19:14] LABS: Urine Bacteria NONE SEEN /hpf (None Seen); Urine Blood 1+ /uL (Negative); Urine Specific Gravity 1.014 (1.001-1.035); Urine WBC 1 /hpf (0 - 5)
[2019-02-08 19:33] LABS: Albumin 4.4 g/dL (3.4-5.0); Calcium 9.3 mg/dL (8.5-10.1)
[2019-02-08 19:36] LABS: Bilirubin, Total 0.4 mg/dL (0.2-1.0); Total Protein 8.1 g/dL (6.4-8.2)
[2019-02-08 19:39] LABS: Basophils # (auto) 0.1 uL; Basophils % (auto) 0.9 % (0.0-2.0); Eosinophils # (auto) 0.3 uL; Eosinophils % (auto) 4.6 % (0.0-7.0); Hematocrit 42.4 % (36.0-46.0); Hemoglobin 14.3 g/dL (12.2-16.2); Lymphocytes # (auto) 3.1 uL; Lymphocytes % (auto) 47.8 % (10.0-50.0); Mean Corpuscular Hemoglobin 31.1 pg (28.0-32.0); Mean Corpuscular Hgb Conc. 33.7 g/dL (32.0-36.0); Mean Corpuscular Volume 92.2 fL (80.0-100.0); Monocytes # (auto) 0.3 uL; Monocytes % (auto) 4.8 % (0.0-12.0); Neutrophils # (auto) 2.7 uL; Neutrophils % (auto) 41.9 % (37.0-80.0); Nucleated Red Blood Cells % 0.1 %; Platelet Count (auto) 290 10^3/uL (140-450); Red Cell Distribution Width 13.2 % (11.8-14.3); White Blood Cell 6.4 10^3/uL (4.4-10.8)
[2019-02-09 04:56] VITALS: BP 155/80
== END 2019-02-09 06:10 | disposition home or self-care (01) ==
LOC: ER 18:47
DX: K52.9 Noninfective gastroenteritis and colitis, unspecified (principal); K21.9 Gastro-esophageal reflux disease without esophagitis; E78.5 Hyperlipidemia, unspecified; Z86.39 Personal history of other endocrine, nutritional and metabolic disease; Z90.49 Acquired absence of other specified parts of digestive tract; Z90.710 Acquired absence of both cervix and uterus
CPT/HCPCS: 36415; 74176; 80053; 81001; 85025

== ENCOUNTER 2019-04-10 20:53 | Emergency (ER) | payer MEDICAID ==
[~2019-04-10] VITALS: Ht 152.4 cm; Wt 75.7 kg
[2019-04-10 22:30] VITALS: BP 107/64
[2019-04-10] MEDS ORDERED: methylPREDNISolone SOD SUCC 125 MG/2 ML VL IM ONE (22:30)
[2019-04-10] MEDS ORDERED: BACLOFEN 10 MG TAB PO ONE (22:30)
== END 2019-04-10 23:15 | disposition home or self-care (01) ==
LOC: ER 20:53
DX: S33.5XXA Sprain of ligaments of lumbar spine, initial encounter (principal); X50.1XXA Overexertion from prolonged static or awkward postures, initial encounter; Y93.89 Activity, other specified; Y99.8 Other external cause status; Y92.89 Other specified places as the place of occurrence of the external cause
CPT/HCPCS: 72100; 96372; 99283; J2930

== ENCOUNTER 2019-06-26 23:11 | Emergency (ER) | payer MEDICAID ==
[~2019-06-26] VITALS: Ht 152.4 cm; Wt 72.6 kg
[2019-06-27] MEDS ORDERED: SODIUM CHLORIDE 0.9% 1,000 ML IV ONE
[2019-06-27] MEDS ORDERED: MORPHINE SULF INJ 2 MG/ML SYRINGE 1ML IV ONE
[2019-06-27 00:19] LABS: Basophils # (auto) 0 uL; Basophils % (auto) 0.3 % (0.0-2.0); Eosinophils # (auto) 0 uL; Hematocrit 43.6 % (36.0-46.0); Hemoglobin 14.8 g/dL (12.2-16.2); Lymphocytes # (auto) 2.2 uL; Lymphocytes % (auto) 15.9 % (10.0-50.0); Mean Corpuscular Hemoglobin 31.2 pg (28.0-32.0); Mean Corpuscular Hgb Conc. 33.9 g/dL (32.0-36.0); Mean Corpuscular Volume 92.2 fL (80.0-100.0); Monocytes # (auto) 0.4 uL; Monocytes % (auto) 3.3 % (0.0-12.0); Neutrophils # (auto) 10.9 uL; Neutrophils % (auto) 80.5 % (37.0-80.0); Nucleated Red Blood Cells % 0.1 %; Platelet Count (auto) 288 10^3/uL (140-450); Red Blood Cells 4.73 10^6/uL (4.0-5.20); Red Cell Distribution Width 13.2 % (11.8-14.3); White Blood Cell 13.6 10^3/uL (4.4-10.8)
[2019-06-27 00:38] LABS: Albumin 4.7 g/dL (3.4-5.0); Potassium 3.3 mmol/L (3.5-5.1)
[2019-06-27 00:53] LABS: Bilirubin, Total 0.4 mg/dL (0.2-1.0); Total Protein 8.9 g/dL (6.4-8.2)
[2019-06-27 01:14] LABS: Urine Bacteria NONE SEEN /hpf (None Seen); Urine Blood 1+ /uL (Negative); Urine Mucus FEW (None Seen); Urine Specific Gravity 1.015 (1.001-1.035); Urine WBC 1 /hpf (0 - 5)
[2019-06-27] MEDS ORDERED: cloNIDine HCL 0.1 MG TAB PO ONE (01:15)
[2019-06-27 01:28] LABS: Alcohol, Urine < 3.0 mg/dL (0-5); Amphetamine Screen, Urine NEGATIVE (NEGATIVE); Barbiturate Scree,Urine NEGATIVE (NEGATIVE); Benzodiazephine Screen, Urine NEGATIVE (NEGATIVE); Cannabinoid Screen, Urine POSITIVE (NEGATIVE); Cocaine Screen, Urine NEGATIVE (NEGATIVE)
[2019-06-27 01:35] LABS: Opiate Scree,Urine NEGATIVE (NEGATIVE); Phencyclidine Screen, Urine NEGATIVE (NEGATIVE)
[2019-06-27] MEDS ORDERED: PROMETHAZINE HCL 25 MG/ML 1ML IV ONE ×2 (03:15)
[2019-06-27] MEDS ORDERED: MORPHINE SULFATE 4 MG/ML SYR/VIAL IV ONE (04:30)
[2019-06-27] MEDS ORDERED: IOHEXOL 300 MG/ML 100ML BOTTLE IJ ONE (04:49)
[2019-06-27 06:33] VITALS: BP 178/89
== END 2019-06-27 06:50 | disposition home or self-care (01) ==
LOC: EDBD 23:11 → ER 23:15
DX: R11.15 Cyclical vomiting syndrome unrelated to migraine (principal); R10.84 Generalized abdominal pain; F11.23 Opioid dependence with withdrawal; K21.9 Gastro-esophageal reflux disease without esophagitis; E78.5 Hyperlipidemia, unspecified; I10 Essential (primary) hypertension; Z90.49 Acquired absence of other specified parts of digestive tract; Z90.710 Acquired absence of both cervix and uterus; Z79.899 Other long term (current) drug therapy
CPT/HCPCS: 36415; 80053; 80307; 81001; 83690; 85025; 96361; 96374; 96375; 96376; 99284; J2270; J2550; J7030

== ENCOUNTER 2020-01-11 08:16 | Emergency (ER) | payer SELFPAY ==
[~2020-01-11] VITALS: Ht 152.4 cm; Wt 81.6 kg
[2020-01-11 08:50] VITALS: BP 153/75
[2020-01-11] MEDS ORDERED: IBUPROFEN 800 MG TAB PO ONE (09:30)
[2020-01-11] MEDS ORDERED: cefTRIAXone SOD 1,000 MG VL IM ONE (09:30)
== END 2020-01-11 09:53 | disposition home or self-care (01) ==
LOC: ER 08:16
DX: N61.1 Abscess of the breast and nipple (principal); I10 Essential (primary) hypertension; K21.9 Gastro-esophageal reflux disease without esophagitis; E78.5 Hyperlipidemia, unspecified; Z79.899 Other long term (current) drug therapy
CPT/HCPCS: 96372; 99283; J0696

== ENCOUNTER 2020-03-08 16:27 | Emergency (ER) | payer MEDICAID ==
[~2020-03-08] VITALS: Ht 152.4 cm; Wt 79.4 kg
[2020-03-09 01:45] VITALS: BP 140/75
== END 2020-03-09 01:47 | disposition home or self-care (01) ==
LOC: ER 16:27
DX: M79.675 Pain in left toe(s) (principal); I10 Essential (primary) hypertension; E78.5 Hyperlipidemia, unspecified; K21.9 Gastro-esophageal reflux disease without esophagitis; Z90.49 Acquired absence of other specified parts of digestive tract; Z90.710 Acquired absence of both cervix and uterus; Z79.899 Other long term (current) drug therapy
CPT/HCPCS: 36415; 84550

== ENCOUNTER 2021-03-15 20:01 | Inpatient (IN) | payer MEDICAID ==
[~2021-03-15] VITALS: Ht 157.5 cm; Wt 40.9 kg
[2021-03-15] MEDS ORDERED: PROCHLORPERAZINE EDISYLATE 5 MG/ML 2ML VIAL IV ONE (20:30)
[2021-03-15] MEDS ORDERED: PANTOPRAZOLE 40 MG/10 ML VIAL INJ IV ONE (20:30)
[2021-03-15] MEDS ORDERED: SODIUM CHLORIDE 0.9% 1,000 ML IV ONE (20:30)
[2021-03-15 21:19] LABS: Basophils # (auto) 0.1 10 ^3/uL (0-0.2); Basophils % (auto) 0.6 % (0.0-2.0); Eosinophils # (auto) 0 10 ^3/uL (0-0.8); Hematocrit 46.3 % (36.0-46.0); Hemoglobin 16.1 g/dL (12.2-16.2); Lymphocytes # (auto) 3.7 10 ^3/uL (0.4-5.4); Lymphocytes % (auto) 20.2 % (10.0-50.0); Mean Corpuscular Hemoglobin 31.5 pg (28.0-32.0); Mean Corpuscular Hgb Conc. 34.9 g/dL (32.0-36.0); Mean Corpuscular Volume 90.2 fL (80.0-100.0); Monocytes # (auto) 0.5 10 ^3/uL (0-1.3); Monocytes % (auto) 2.9 % (0.0-12.0); Neutrophils # (auto) 14.1 10 ^3/uL (1.6-8.6); Neutrophils % (auto) 76.3 % (37.0-80.0); Nucleated Red Blood Cells % 0.2 %; Red Blood Cells 5.13 10^6/uL (4.0-5.20); Red Cell Distribution Width 13.1 % (11.8-14.3); White Blood Cell 18.5 10^3/uL (4.4-10.8)
[2021-03-15] MEDS ORDERED: cloNIDine HCL 0.1 MG TAB PO ONE (21:30)
[2021-03-15 21:31] LABS: Albumin 4.7 g/dL (3.4-5.0); Anion Gap 14 (5-15); Blood Urea Nitrogen 15 mg/dL (7-18); Calcium 10.3 mg/dL (8.5-10.1); Carbon Dioxide 16 mmol/L (21-32); Chloride 108 mmol/L (98-107); Glucose 174 mg/dL (74-106); Lipase 56 U/L (73-393); Potassium 3.6 mmol/L (3.5-5.1); Sodium 138 mmol/L (136-145)
[2021-03-15 21:34] LABS: Alanine Aminotransferase 26 U/L (13-56); Alkaline Phosphatase 89 U/L (45-117); Aspartate Aminotransferase 18 U/L (15-37); BUN/Creatinine Ratio 16.3; Bilirubin, Total 0.4 mg/dL (0.2-1.0); GFR African American 82 mL/min; GFR Non-African American 68 mL/min; Total Protein 9.1 g/dL (6.4-8.2)
[2021-03-15] MEDS ORDERED: MORPHINE SULFATE 4 MG/ML SYR/VIAL IV ONE (22:45)
[2021-03-15 23:22] LABS: Urine Bacteria NONE SEEN /hpf (None Seen); Urine Blood 1+ /uL (Negative); Urine Specific Gravity 1.017 (1.001-1.035); Urine WBC 2 /hpf (0 - 5)
[2021-03-15] MEDS ORDERED: ACETAMINOPHEN 500 MG TAB PO PRN (23:45)
[2021-03-15] MEDS ORDERED: DEXTROSE (50%) 50ML SYRG IV PRN (23:45)
[2021-03-15] MEDS ORDERED: METOCLOPRAMIDE HCL 5MG/ml INJ 2ml VIAL IV PRN (23:45)
[2021-03-15] MEDS ORDERED: NITROGLYCERIN 0.4 MG SL TAB SL PRN (23:45)
[2021-03-15] MEDS ORDERED: MORPHINE SULFATE INJECTION 2 MG/ML SYRG IV PRN ×2 (23:45)
[2021-03-16] MEDS: hydrALAZINE HCL 20 MG/ML VL IV PRN ×2 (00:07→09:26)
[2021-03-16] MEDS: SODIUM CHLORIDE 0.9% 1,000 ML IV SCH ×3 (00:07→19:45)
[2021-03-16 01:56] VITALS: BP 154/90
[2021-03-16] MEDS: metroNIDAZOLE 500MG/100ML 100 ML IV SCH ×2 (05:20→15:48)
[2021-03-16 05:50] VITALS: BP 143/78
[2021-03-16] MEDS: InsuLIN REG 1unit/0.01ml Soln (100units/ml) SC SCH ×3 (06:23→17:00)
[2021-03-16] MEDS: ACCU-CHEK COMFORT CURVE STRIP VI SCH ×3 (06:23→17:00)
[2021-03-16 08:00] VITALS: BP 194/100
[2021-03-16 09:00] VITALS: BP 124/74
[2021-03-16] MEDS ORDERED: cefTRIAXone 1GM/50ML D5W 50 ML IV SCH (10:00)
[2021-03-16] MEDS ORDERED: PANTOPRAZOLE 40 MG/10 ML VIAL INJ IV SCH (10:00)
[2021-03-16] MEDS ORDERED: cloNIDine HCL 0.1 MG TAB PO SCH (10:00)
[2021-03-16] MEDS ORDERED: hydrALAZINE HCL 20 MG/ML VL IV PRN (10:45)
[2021-03-16] MEDS ORDERED: amLODIPine BESYLATE 5 MG TAB PO SCH (10:45)
[2021-03-16 17:00] VITALS: BP 94/49
[2021-03-16] MEDS ORDERED: PANT40TA2 PO (18:38)
[2021-03-16 19:39] VITALS: BP 94/49
[2021-03-17] MEDS ORDERED: PANTOPRAZOLE 40 MG TAB PO SCH (10:00)
== END 2021-03-16 21:45 | disposition home health service (06) | DRG 241 ==
LOC: EDBD 20:01 → ER 20:05 → TELE 23:35 → TELE-WESTW 03-16 01:17
PROVIDERS: ADMIT Hospitalist; ATTEND Hospitalist
DX: K29.00 Acute gastritis without bleeding (principal); F12.90 Cannabis use, unspecified, uncomplicated; K58.9 Irritable bowel syndrome, unspecified; I10 Essential (primary) hypertension; K21.9 Gastro-esophageal reflux disease without esophagitis; Z20.822 Contact with and (suspected) exposure to COVID-19; Z80.9 Family history of malignant neoplasm, unspecified; Z82.49 Family history of ischemic heart disease and other diseases of the circulatory system; Z83.3 Family history of diabetes mellitus; Z90.49 Acquired absence of other specified parts of digestive tract; Z90.710 Acquired absence of both cervix and uterus; Z88.8 Allergy status to other drugs, medicaments and biological substances
CPT/HCPCS: 36415; 74176; 80053; 81001; 82962; 83690; 84484; 85025; 85049; 87426; 93005; 96361; 96374; 96375; C9113; G0378; J0696; J3490

== ENCOUNTER 2021-07-05 13:48 | Emergency (ER) | payer MEDICAID ==
[~2021-07-05] VITALS: Ht 152.4 cm; Wt 95.3 kg
[~2021-07-05 13:48] MED LIST changes: -PANT40T PO
[2021-07-05] MEDS ORDERED: SODIUM CHLORIDE 0.9% 500 ML IVB ONE (14:00)
[2021-07-05] MEDS ORDERED: ONDANSETRON HCL 4 MG/2 ML VIAL IV ONE ×2 (14:00→16:45)
[2021-07-05] MEDS ORDERED: HYDROmorphone HCL 2 MG/ML VL IV ONE ×2 (14:00→16:45)
[2021-07-05 14:57] LABS: Basophils # (auto) 0.1 10 ^3/uL (0-0.2); Basophils % (auto) 0.7 % (0.0-2.0); Eosinophils # (auto) 0 10 ^3/uL (0-0.8); Hematocrit 47.7 % (36.0-46.0); Hemoglobin 16.3 g/dL (12.2-16.2); Lymphocytes # (auto) 4.6 10 ^3/uL (0.4-5.4); Lymphocytes % (auto) 22.1 % (10.0-50.0); Mean Corpuscular Hemoglobin 29.8 pg (28.0-32.0); Mean Corpuscular Hgb Conc. 34.2 g/dL (32.0-36.0); Mean Corpuscular Volume 87.2 fL (80.0-100.0); Monocytes # (auto) 1.3 10 ^3/uL (0-1.3); Monocytes % (auto) 6.2 % (0.0-12.0); Neutrophils # (auto) 14.9 10 ^3/uL (1.6-8.6); Nucleated Red Blood Cells % 0.2 %; Red Blood Cells 5.47 10^6/uL (4.0-5.20); Red Cell Distribution Width 13.7 % (11.8-14.3)
[2021-07-05 15:11] LABS: Albumin 4.9 g/dL (3.4-5.0); Anion Gap 11 (5-15); Blood Urea Nitrogen 14 mg/dL (7-18); Calcium 10.5 mg/dL (8.5-10.1); Carbon Dioxide 20 mmol/L (21-32); Chloride 103 mmol/L (98-107); Glucose 144 mg/dL (74-106); Potassium 3.3 mmol/L (3.5-5.1); Sodium 134 mmol/L (136-145)
[2021-07-05 15:25] LABS: Alanine Aminotransferase 27 U/L (13-56); Alkaline Phosphatase 105 U/L (45-117); Aspartate Aminotransferase 19 U/L (15-37); BUN/Creatinine Ratio 13.5; Bilirubin, Total 0.6 mg/dL (0.2-1.0); GFR African American 71 mL/min; GFR Non-African American 59 mL/min; Lipase 38 U/L (73-393); Total Protein 9.6 g/dL (6.4-8.2)
[2021-07-05] MEDS ORDERED: SODIUM CHLORIDE 0.9% 1,000 ML IVB ONE (16:45)
[2021-07-05] MEDS ORDERED: METOCLOPRAMIDE HCL 5MG/ml INJ 2ml VIAL IV ONE (18:30)
[2021-07-05 18:41] VITALS: BP 145/87
== END 2021-07-05 20:40 | disposition home or self-care (01) ==
LOC: EDBD 13:48 → ER 13:48
DX: K29.70 Gastritis, unspecified, without bleeding (principal); K57.30 Diverticulosis of large intestine without perforation or abscess without bleeding; K21.9 Gastro-esophageal reflux disease without esophagitis; E78.5 Hyperlipidemia, unspecified; I10 Essential (primary) hypertension; F12.10 Cannabis abuse, uncomplicated; Z90.49 Acquired absence of other specified parts of digestive tract; Z90.710 Acquired absence of both cervix and uterus
CPT/HCPCS: 36415; 70450; 71045; 74176; 80053; 83690; 84484; 85025; 93005; 96374; 96375; 99285; J1170; J2765; J7030

== ENCOUNTER 2021-10-08 12:24 | Inpatient (IN) | payer OTHER, MEDICAID ==
[~2021-10-08] VITALS: Ht 152.4 cm; Wt 81.6 kg
[2021-10-08] MEDS ORDERED: ALUM & MAG HYDROX-SIMETH LIQ(MAALOX) 30 ML PO ONE (13:15)
[2021-10-08] MEDS ORDERED: FAMOTIDINE (10MG/ML) 2ML VL IV ONE (13:15)
[2021-10-08] MEDS ORDERED: ONDANSETRON HCL 4 MG/2 ML VIAL IV ONE (13:15)
[2021-10-08] MEDS ORDERED: PROMETHAZINE HCL 25 MG/ML 1ML ONE (13:42)
[2021-10-08] MEDS ORDERED: PROMETHAZINE HCL 25 MG/ML 1ML IV ONE (13:45)
[2021-10-08] MEDS ORDERED: diphenhdrAMINE HCL 50 MG/1 ML VL IV ONE (14:30)
[2021-10-08 14:57] LABS: Basophils # (auto) 0.1 10 ^3/uL (0-0.2); Basophils % (auto) 0.8 % (0.0-2.0); Eosinophils # (auto) 0 10 ^3/uL (0-0.8); Eosinophils % (auto) 0.2 % (0.0-7.0); Hematocrit 44.8 % (36.0-46.0); Lymphocytes # (auto) 2.7 10 ^3/uL (0.4-5.4); Lymphocytes % (auto) 25.6 % (10.0-50.0); Mean Corpuscular Hemoglobin 30.2 pg (28.0-32.0); Mean Corpuscular Hgb Conc. 33.4 g/dL (32.0-36.0); Mean Corpuscular Volume 90.3 fL (80.0-100.0); Monocytes # (auto) 0.3 10 ^3/uL (0-1.3); Monocytes % (auto) 2.6 % (0.0-12.0); Neutrophils # (auto) 7.6 10 ^3/uL (1.6-8.6); Neutrophils % (auto) 70.8 % (37.0-80.0); Nucleated Red Blood Cells % 0.1 %; Red Blood Cells 4.96 10^6/uL (4.0-5.20); Red Cell Distribution Width 13.4 % (11.8-14.3); White Blood Cell 10.7 10^3/uL (4.4-10.8)
[2021-10-08 15:18] LABS: Potassium 3.8 mmol/L (3.5-5.1)
[2021-10-08 15:24] LABS: Albumin 4.7 g/dL (3.4-5.0); BUN/Creatinine Ratio 17.6; Bilirubin, Total 0.4 mg/dL (0.2-1.0); Total Protein 8.9 g/dL (6.4-8.2)
[2021-10-08] MEDS ORDERED: HALOPERIDOL LACTATE 5 MG/ML INJ VIAL IM ONE (18:15)
[2021-10-08] MEDS ORDERED: HYDROcodone-ACET 5/325MG TAB PO ONE (22:35)
[2021-10-08] MEDS ORDERED: IOHEXOL 300 MG/ML 100ML BOTTLE IJ ONE (22:38)
[2021-10-09] MEDS: SODIUM CHLORIDE 0.9% 1,000 ML IV SCH ×2 (01:00→09:18)
[2021-10-09] MEDS ORDERED: HYDROcodone-ACET 5/325MG TAB PO PRN (01:00)
[2021-10-09] MEDS ORDERED: ACETAMINOPHEN 325 MG TAB PO PRN (01:00)
[2021-10-09] MEDS ORDERED: METOCLOPRAMIDE HCL 5MG/ml INJ 2ml VIAL IV PRN (01:00)
[2021-10-09] MEDS ORDERED: PROMETHAZINE HCL 25 MG/ML 1ML IV PRN (01:00)
[2021-10-09] MEDS ORDERED: hydrALAZINE HCL 20 MG/ML VL IV PRN (01:00)
[2021-10-09] MEDS ORDERED: MORPHINE SULFATE 4 MG/ML SYR/VIAL IV PRN (01:00)
[2021-10-09 01:57] LABS: Basophils # (auto) 0.2 10 ^3/uL (0-0.2); Basophils % (auto) 1.3 % (0.0-2.0); Eosinophils # (auto) 0 10 ^3/uL (0-0.8); Eosinophils % (auto) 0.1 % (0.0-7.0); Hematocrit 45.1 % (36.0-46.0); Hemoglobin 15.1 g/dL (12.2-16.2); Lymphocytes # (auto) 2.2 10 ^3/uL (0.4-5.4); Lymphocytes % (auto) 18.3 % (10.0-50.0); Mean Corpuscular Hemoglobin 29.8 pg (28.0-32.0); Mean Corpuscular Hgb Conc. 33.6 g/dL (32.0-36.0); Mean Corpuscular Volume 88.9 fL (80.0-100.0); Monocytes # (auto) 0.4 10 ^3/uL (0-1.3); Monocytes % (auto) 3.3 % (0.0-12.0); Neutrophils # (auto) 9.3 10 ^3/uL (1.6-8.6); Nucleated Red Blood Cells % 0.1 %; Red Blood Cells 5.07 10^6/uL (4.0-5.20); Red Cell Distribution Width 13.3 % (11.8-14.3)
[2021-10-09 02:13] LABS: BUN/Creatinine Ratio 12.4; Calcium 9.8 mg/dL (8.5-10.1); Potassium 3.6 mmol/L (3.5-5.1)
[2021-10-09 02:16] LABS: Bilirubin, Total 0.5 mg/dL (0.2-1.0); Total Protein 9.1 g/dL (6.4-8.2)
[2021-10-09] MEDS ORDERED: NITROGLYCERIN 0.4 MG SL TAB SL PRN (03:00)
[2021-10-09] MEDS ORDERED: MORPHINE SULFATE INJECTION 2 MG/ML SYRG IV PRN (03:00)
[2021-10-09 06:22] VITALS: BP 218/107
[2021-10-09] MEDS ORDERED: ENOXAPARIN SOD 40 MG/0.4 ML SYRINGE SC SCH (10:00)
[2021-10-09] MEDS ORDERED: PANTOPRAZOLE 40 MG/10 ML VIAL INJ IV SCH (10:00)
[2021-10-09] MEDS ORDERED: amLODIPine BESYLATE 5 MG TAB PO SCH (10:00)
[2021-10-09] MEDS ORDERED: DICY10CA PO (12:30)
== END 2021-10-09 13:36 | disposition home or self-care (01) | DRG 392 ==
LOC: EDBD 12:24 → ER 12:24 → OVERFLOW 10-09 02:48
PROVIDERS: ADMIT Nurse Practitioner Family; ATTEND Internal Medicine
DX: R10.9 Unspecified abdominal pain (principal); E03.9 Hypothyroidism, unspecified; I10 Essential (primary) hypertension; K21.9 Gastro-esophageal reflux disease without esophagitis; G89.29 Other chronic pain; Z20.822 Contact with and (suspected) exposure to COVID-19; R73.9 Hyperglycemia, unspecified; Z83.3 Family history of diabetes mellitus; Z80.9 Family history of malignant neoplasm, unspecified; Z82.49 Family history of ischemic heart disease and other diseases of the circulatory system; Z90.710 Acquired absence of both cervix and uterus; Z90.49 Acquired absence of other specified parts of digestive tract
CPT/HCPCS: 36415; 71045; 74177; 80053; 84484; 85025; 87426; 96361; 96374; 96375; C9113; G0378; J3490